=== PATIENT | female | born 2000 | race Caucasian/White ===

== ENCOUNTER 2019-02-14 20:42 | Emergency (ER) | payer BC ==
--- NOTE | 2019-02-14 20:51 | EDM.PDOC ---
ED HPI GENERAL MEDICAL PROBLEM - General Stated Complaint: HAD MIRENA PLACED. CRAMPING, BLEEDING, NAUSEOUS Time Seen by Provider: 02/14/19 20:45 Source of Information: Reports: Patient History Limitations: Reports: No Limitations - History of Present Illness INITIAL COMMENTS - FREE TEXT/NARRATIVE: HISTORY AND PHYSICAL: History of present illness: Patient is a 19-year-old female who presents to the emergency room with complaints of vaginal bleeding and suprapubic cramping since having a Mirena IUD placed approximately 8 days ago in [place]. She states initially she just had light spotting which is progressively gotten heavier and more painful. Patient denies any fever, chills, headache, change in vision, syncope or near syncope. Denies any chest pain, back pain, shortness of breath or cough. Denies any abdominal pain, nausea, vomiting, diarrhea, constipation or dysuria. Has not noted any blood in urine or stool. Patient has been eating and drinking appropriately. Review of systems: As per history of present illness and below otherwise all systems reviewed and negative. Past medical history: As per history of present illness and as reviewed below otherwise noncontributory. Surgical history: As per history of present illness and as reviewed below otherwise noncontributory. Social history: See social history for further information Family history: As per history of present illness and as reviewed below otherwise noncontributory. Physical exam: General: Well-developed and well-nourished 19-year-old female. Alert and oriented. Nontoxic appearing and in no acute distress. HEENT: Atraumatic, normocephalic, pupils equal and reactive bilaterally, negative for conjunctival pallor or scleral icterus, mucous membranes moist, trachea midline. No drooling or trismus noted. No meningeal signs. No hot potato voice noted. Lungs: Clear to auscultation, breath sounds equal bilaterally, chest nontender. Heart: S1S2, regular rate and rhythm without overt murmur Abdomen: Soft, nondistended, mild suprapubic tenderness. Negative for masses. Negative for costovertebral tenderness. Pelvis: Stable nontender. Genitourinary: This was done with consent and a slide attendant at the bedside. External genitalia is within normal limits. Cervical os is closed minimal amount of blood is noted in the vaginal canal. Able to visualize the Mirena strings. Mild tenderness with speculum insertion but no cervical motion tenderness. Rectal: Deferred. Skin: Intact, warm, dry. No lesions or rashes noted. Extremities: Atraumatic, moves all extremities per self without difficulty or deficits, negative for cords or calf pain. Neurovascular unremarkable. Neuro: Awake, alert, oriented. Cranial nerves II through XII unremarkable. Cerebellum unremarkable. Motor and sensory unremarkable throughout. Exam nonfocal. Notes: She states that prior to the IUD placement she did have STD testing and routine lab work along with . All of which were negative/normal. Lab work is unremarkable. Ultrasound shows IUD in the lower uterine segment. Simple cyst noted to the right ovary. This is an incidental finding and she does not have any right or left lower quadrant/pelvic pain that is more mons pubis/suprapubic. Supportive care measures were reviewed and discussed. Voices understanding and is agreeable to plan of care. Denies any further questions or concerns at this time. Diagnostics: CBC, CMP, UA, HCGU, Ultrasound Therapeutics: Tramadol Prescription: None Impression: Pelvic pain, post IUD insertion Plan: 1. Pelvic rest until pain resolves. 2. Tylenol and/or ibuprofen as needed for pain management. 3. Follow-up with your HOME IMPROVEMENT CONTRACTOR as we discussed. Return to the ED as needed as discussed. Definitive disposition and diagnosis as appropriate pending reevaluation and review of above. Duration: Day(s): Location: Reports: Pelvis Back Pain Score (Numeric/FACES): 8 - Related Data Allergies Allergy/AdvReac Type Severity Reaction Status Date / Time No Known Allergies Allergy Verified 02/14/19 20:59 Home Meds: Home Meds Levonorgestrel [Mirena] 1 each .XX ASDIRECTED 02/14/19 [History] ED ROS GENERAL - Review of Systems Review Of Systems: ROS reveals no pertinent complaints other than HPI. ED EXAM, GENERAL - Physical Exam Exam: See Below (See dictation) Course - Vital Signs Last Recorded V/S: Last Vital Signs Temp 97.5 F 02/14/19 20:52 Pulse 97 02/14/19 20:52 Resp 18 02/14/19 20:52 BP 121/83 02/14/19 20:52 Pulse Ox 98 02/14/19 20:52 - Orders/Labs/Meds Orders: Active Orders 24 hr Category Date Time Status Pelvis Non OB Ltd [US] Stat Exams 02/14/19 20:52 Taken Labs: Laboratory Tests 02/14/19 02/14/19 02/14/19 Range/Units 20:51 20:51 21:00 WBC 9.77 (4.0-11.0) K/uL RBC 4.76 (4.30-5.90) M/uL Hgb 14.2 (12.0-16.0) g/dL Hct 42.0 (36.0-46.0) % MCV 88.2 (80.0-98.0) fL MCH 29.8 (27.0-32.0) pg MCHC 33.8 (31.0-37.0) g/dL RDW Std Deviation 40.6 (28.0-62.0) fl RDW Coeff of Maryann 13 (11.0-15.0) % Plt Count 419 H (150-400) K/uL MPV 9.10 (7.40-12.00) fL Neut % (Auto) 52.5 (48.0-80.0) % Lymph % (Auto) 34.6 (16.0-40.0) % Kinney % (Auto) 9.2 (0.0-15.0) % Eos % (Auto) 3.1 (0.0-7.0) % Baso % (Auto) 0.6 (0.0-1.5) % Neut # (Auto) 5.1 (1.4-5.7) K/uL Lymph # (Auto) 3.4 H (0.6-2.4) K/uL Kinney # (Auto) 0.9 H (0.0-0.8) K/uL Eos # (Auto) 0.3 (0.0-0.7) K/uL Baso # (Auto) 0.1 (0.0-0.1) K/uL Nucleated RBC % 0.0 /100WBC Nucleated RBCs # 0 K/uL Sodium (136-145) mmol/L Potassium (3.5-5.1) mmol/L Chloride (98-107) mmol/L Carbon Dioxide (21.0-32.0) mmol/L BUN (7.0-18.0) mg/dL Creatinine (0.6-1.0) mg/dL Est Cr Clr Drug Dosing mL/min Estimated GFR (MDRD) ml/min Glucose (74-106) mg/dL Calcium (8.5-10.1) mg/dL Total Bilirubin (0.2-1.0) mg/dL AST (15-37) IU/L ALT (14-63) IU/L Alkaline Phosphatase (46-116) U/L Total Protein (6.4-8.2) g/dL Albumin (3.4-5.0) g/dL Globulin (2.6-4.0) g/dL Albumin/Globulin Ratio (0.9-1.6) Urine Color YELLOW Urine Appearance CLEAR Urine pH 7.5 (5.0-8.0) Ur Specific Clayton 1.015 (1.001-1.035) Urine Protein NEGATIVE (NEGATIVE) mg/dL Urine Glucose (UA) NEGATIVE (NEGATIVE) mg/dL Urine Ketones NEGATIVE (NEGATIVE) mg/dL Urine Occult Blood LARGE H (NEGATIVE) Urine Nitrite NEGATIVE (NEGATIVE) Urine Bilirubin NEGATIVE (NEGATIVE) Urine Urobilinogen 0.2 (<2.0) EU/dL Ur Leukocyte Esterase NEGATIVE (NEGATIVE) Urine RBC 0-4 (0-2/HPF) Urine WBC 0-2 (0-5/HPF) Ur Epithelial Cells OCCASIONAL (NONE-FEW) Urine Bacteria FEW (NEGATIVE) Urine HCG, Qual NEGATIVE (NEGATIVE) 02/14/19 Range/Units 21:00 WBC (4.0-11.0) K/uL RBC (4.30-5.90) M/uL Hgb (12.0-16.0) g/dL Hct (36.0-46.0) % MCV (80.0-98.0) fL MCH (27.0-32.0) pg MCHC (31.0-37.0) g/dL RDW Std Deviation (28.0-62.0) fl RDW Coeff of Maryann (11.0-15.0) % Plt Count (150-400) K/uL MPV (7.40-12.00) fL Neut % (Auto) (48.0-80.0) % Lymph % (Auto) (16.0-40.0) % Kinney % (Auto) (0.0-15.0) % Eos % (Auto) (0.0-7.0) % Baso % (Auto) (0.0-1.5) % Neut # (Auto) (1.4-5.7) K/uL Lymph # (Auto) (0.6-2.4) K/uL Kinney # (Auto) (0.0-0.8) K/uL Eos # (Auto) (0.0-0.7) K/uL Baso # (Auto) (0.0-0.1) K/uL Nucleated RBC % /100WBC Nucleated RBCs # K/uL Sodium 136 (136-145) mmol/L Potassium 4.0 (3.5-5.1) mmol/L Chloride 103 (98-107) mmol/L Carbon Dioxide 24.5 (21.0-32.0) mmol/L BUN 14 (7.0-18.0) mg/dL Creatinine 0.8 (0.6-1.0) mg/dL Est Cr Clr Drug Dosing 109.08 mL/min Estimated GFR (MDRD) > 60.0 ml/min Glucose 108 H (74-106) mg/dL Calcium 8.7 (8.5-10.1) mg/dL Total Bilirubin 0.2 (0.2-1.0) mg/dL AST 19 (15-37) IU/L ALT 26 (14-63) IU/L Alkaline Phosphatase 72 (46-116) U/L Total Protein 7.4 (6.4-8.2) g/dL Albumin 3.9 (3.4-5.0) g/dL Globulin 3.5 (2.6-4.0) g/dL Albumin/Globulin Ratio 1.1 (0.9-1.6) Urine Color Urine Appearance Urine pH (5.0-8.0) Ur Specific Clayton (1.001-1.035) Urine Protein (NEGATIVE) mg/dL Urine Glucose (UA) (NEGATIVE) mg/dL Urine Ketones (NEGATIVE) mg/dL Urine Occult Blood (NEGATIVE) Urine Nitrite (NEGATIVE) Urine Bilirubin (NEGATIVE) Urine Urobilinogen (<2.0) EU/dL Ur Leukocyte Esterase (NEGATIVE) Urine RBC (0-2/HPF) Urine WBC (0-5/HPF) Ur Epithelial Cells (NONE-FEW) Urine Bacteria (NEGATIVE) Urine HCG, Qual (NEGATIVE) Meds: Medications Discontinued Medications Generic Name Dose Route Start Last Admin Trade Name Freq PRN Reason Stop Dose Admin Tramadol HCl 50 mg 02/14/19 21:13 02/14/19 21:35 Ultram PO 02/14/19 21:14 50 mg ONETIME ONE Administration Departure - Departure Time of Disposition: 21:50 Disposition: Home, Self-Care 01 Clinical Impression: Pelvic pain - Discharge Information Instructions: Pelvic Pain, Female, [id number] Referrals: PCP,None [Primary Care Provider] - Additional Instructions: The following information is given to patients seen in the emergency department who are being discharged to home. This information is to outline your options for follow-up care. We provide all patients seen in our emergency department with a follow-up referral. The need for follow-up, as well as the timing and circumstances, are variable depending upon the specifics of your emergency department visit. If you don't have a primary care physician on staff, we will provide you with a referral. We always advise you to contact your personal physician following an emergency department visit to inform them of the circumstance of the visit and for follow-up with them and/or the need for any referrals to a consulting specialist. The emergency department will also refer you to a specialist when appropriate. This referral assures that you have the opportunity for follow-up care with a specialist. All of these measure are taken in an effort to provide you with optimal care, which includes your follow-up. Under all circumstances we always encourage you to contact your private physician who remains a resource for coordinating your care. When calling for follow-up care, please make the office aware that this follow-up is from your recent emergency room visit. If for any reason you are refused follow-up, please contact the [facility] Emergency Department at and asked to speak to the emergency department charge nurse. [facility] Primary Care: Women's Health [address] [place] [id number] [facility] [address] [place] [address] 1. Pelvic rest until pain resolves. 2. Tylenol and/or ibuprofen as needed for pain management. 3. Follow-up with your HOME IMPROVEMENT CONTRACTOR as we discussed. Return to the ED as needed as discussed. - My Orders Last 24 Hours: My Active Orders 02/14/19 20:52 Pelvis Non OB Ltd [US] Stat - Assessment/Plan Last 24 Hours: My Active Orders 02/14/19 20:52 Pelvis Non OB Ltd [US] Stat
[2019-02-14] MEDS ORDERED: traMADol 50 MG Tab PO ONE (21:13)
[2019-02-14 21:33] LABS: CHLORIDE,CL 103 mmol/L (98-107); SODIUM,NA 136 mmol/L (136-145)
--- NOTE | 2019-02-14 21:55 | US ---
INDICATION: IUD inserted on 02/06/2019. Now with pelvic cramping TECHNIQUE: Ultrasound pelvis transabdominal and transvaginal. Endovaginal imaging was performed to better visualize the endometrium and ovaries. Real-time cortez scale sonographic images with spectral and color Doppler imaging of the ovaries were obtained. COMPARISON: None FINDINGS: Uterus: 4.2 x 5 x 6.7 cm. An IUD is present in the lower uterine segment. Normal echotexture of the myometrium noted with no masses are seen. Endometrium: 9 mm. No sign of endometrial mass or fluid present. Right ovary: 3.2 x 3.2 x 2.5 cm. There is a simple cyst in the right ovary measuring 2.7 x 1.6 cm. Arterial blood flow seen within the right ovary but diastolic flow is difficult to demonstrate. Left ovary: 2.3 x 2.8 x 2.3 cm. The left ovary is normal in appearance and echotexture. Arterial blood flow seen within the left ovary. Cul-de-sac: No significant ascites noted. IMPRESSIONS: 1. An IUD is present in the lower uterine segment. 2. There is a simple cyst in the right ovary measuring 2.7 x 1.6 cm. 3. Arterial blood flow seen within the right ovary but diastolic flow is difficult to demonstrate. Partial ovarian torsion cannot be excluded. Dictated by Eric Fuller MD @ 02/14/2019 9:52:24 PM Dictated by: Eric Fuller MD @ 02/14/2019 21:54:45 (Electronically Signed)
== END 2019-02-14 22:05 | disposition home or self-care (01) ==
LOC: MW.ED 20:42
DX: T83.84XA Pain due to genitourinary prosthetic devices, implants and grafts, initial encounter (principal)
CPT/HCPCS: 36415; 76857; 80053; 81001; 81025; 85025; 99284; A9270

== ENCOUNTER 2020-10-16 20:53 | Emergency (ER) | payer MEDICAID ==
[2020-10-16] MEDS ORDERED: cefTRIAXone 1 GM Vial IM ONE (21:55)
--- NOTE | 2020-10-16 21:56 | EDM.PDOC ---
ED HPI GENERAL MEDICAL PROBLEM - General Chief Complaint: LEASE BROKER Problem Stated Complaint: CERVICAL PAIN Time Seen by Provider: 10/16/20 21:30 Source of Information: Reports: Patient History Limitations: Reports: No Limitations - History of Present Illness INITIAL COMMENTS - FREE TEXT/NARRATIVE: HISTORY AND PHYSICAL: History of present illness: Patient is a 20-year-old female who presents to the ED today with concern of sensation of " period Cramping "but states that she is not having any vaginal bleeding as she has had an IUD for 2 years. She states her symptoms started at 4 this afternoon and states that she feels like she is going to start her menstrual cycle but she has not had any vaginal bleeding. Patient states that she has an IUD so was concerned that maybe she is having some complication with an IUD. Patient states that she has still been able to feel her strings. Patient states that if she were to have intercourse, this would also be painful. She states that she has been in a monogamous relationship for 2 years but there is the possibility that her significant other is not faithful as she has doubted him before. Patient denies any change in vaginal discharge. Patient denies fever, chills, chest pain, shortness of breath, or cough. Denies headache, neck stiff ness, change in vision, syncope, or near syncope. Denies nausea, vomiting, diarrhea, constipation, or dysuria. Has not noted any blood in urine or stool. Patient has been eating and drinking appropriately. Review of systems: As per history of present illness and below otherwise all systems reviewed and negative. Past medical history: As per history of present illness and as reviewed below otherwise noncontributory. Surgical history: As per history of present illness and as reviewed below otherwise noncontributory. Social history: See social history for further information Family history: As per history of present illness and as reviewed below otherwise noncontributo ry. Physical exam: General: Patient is alert, oriented, and in no acute distress. Patient sitting comfortably on exam table. Vitals stable and reviewed by me. HEENT: Atraumatic, normocephalic, pupils equal and reactive bilaterally, negative for conjunctival pallor or scleral icterus, mucous membranes moist, TMs normal bilaterally, throat clear, neck supple, nontender, trachea midline. No drooling or trismus noted. No meningeal signs. No hot potato voice noted. Lungs: Clear to auscultation, breath sounds equal bilaterally, chest nontender. Heart: S1S2, regular rate and rhythm without overt murmur Abdomen: Soft, nondistended, nontender. Negative for masses or hepatosplenomegaly. Negative for costovertebral tenderness. Pelvis: Stable nontender. Genitourinary: Donation Worker at bedside Delia. External genitalia is grossly unremarkable. There is a moderate amount of white vaginal discharge in the vaginal vault. Positive cervical motion tenderness chandelier sign. Uterus nontender. No adnexal tenderness. Rectal: Deferred. Skin: Intact, warm, dry. No lesions or rashes noted. Extremities: Atraumatic, negative for cords or calf pain. Neurovascular unremarkable. Neuro: Awake, alert, oriented. Cranial nerves II through XII unremarkable. Cerebellum unremarkable. Motor and sensory unremarkable throughout. Exam nonfocal. Notes: Signs and symptoms that would prompt return to the ED thoroughly discussed with patient. Discussed importance for follow-up with women's health provider. Voices understanding and is agreeable to plan of care. Denies any further questions or concerns at this time. Diagnostics: CBC, CMP, UA, Hcg, TVUS, Affirm, [employer]: Rocephin Prescription: Doxycycline Impression: Pelvic inflammatory disease Plan: 1. You can alternate ibuprofen and Tylenol as directed for pain and discomfort. 2. Take medication as prescribed. Refrain from sexual activity until all lab work has returned. 3. Follow-up with a women's health provider as discussed. Return to the ED as needed and as discussed. Definitive disposition and diagnosis as appropriate pending reevaluation and review of above. Uterine Pain Score (Numeric/FACES): 8 - Related Data Allergies Allergy/AdvReac Type Severity Reaction Status Date / Time No Known Allergies Allergy Verified 10/16/20 21:24 Home Meds: Home Meds levonorgestreL [Mirena] 1 each .XX ASDIRECTED 02/14/19 [History] Doxycycline [Vibramycin] 100 mg PO BID 14 Days #28 cap 10/16/20 [Rx] Past Medical History Cardiovascular History: Reports: None Respiratory History: Reports: None Gastrointestinal History: Reports: None LEASE BROKER History: Reports: Spontaneous , Other (See Below) Other LEASE BROKER History: IUD Musculoskeletal History: Reports: None Neurological History: Reports: None Psychiatric History: Reports: Anxiety, Depression, Mood Swings Endocrine/Metabolic History: Reports: None Hematologic History: Reports: None Immunologic History: Reports: None Oncologic (Cancer) History: Reports: None Dermatologic History: Reports: None - Infectious Disease History Infectious Disease History: Reports: None - Past Surgical History Head Surgeries/Procedures: Reports: None HEENT Surgical History: Reports: Oral Surgery, Tonsillectomy Social & Family History - Family History Family Medical History: No Pertinent Family History - Recreational Drug Use Recreational Drug Use: No ED ROS GENERAL - Review of Systems Review Of Systems: Comprehensive ROS is negative, except as noted in HPI. ED EXAM, GENERAL - Physical Exam Exam: See Below (see dictation) Course - Vital Signs Last Recorded V/S: Last Vital Signs Temp 97.0 F 10/16/20 23:50 Pulse 81 10/16/20 23:50 Resp 18 10/16/20 23:50 BP 123/87 10/16/20 23:50 Pulse Ox 99 10/16/20 23:50 - Orders/Labs/Meds Labs: Laboratory Tests 10/16/20 10/16/20 10/16/20 Range/Units 21:15 21:40 21:57 WBC 8.36 (4.0-11.0) K/uL RBC 4.83 (4.30-5.90) M/uL Hgb 14.8 (12.0-16.0) g/dL Hct 43.3 (36.0-46.0) % MCV 89.6 (80.0-98.0) fL MCH 30.6 (27.0-32.0) pg MCHC 34.2 (31.0-37.0) g/dL RDW Std Deviation 40.0 (28.0-62.0) fl RDW Coeff of Maryann 12 (11.0-15.0) % Plt Count 422 H (150-400) K/uL MPV 8.90 (7.40-12.00) fL Neut % (Auto) 46.9 L (48.0-80.0) % Lymph % (Auto) 38.9 (16.0-40.0) % Grundy % (Auto) 10.4 (0.0-15.0) % Eos % (Auto) 2.8 (0.0-7.0) % Baso % (Auto) 1.0 (0.0-1.5) % Neut # (Auto) 3.9 (1.4-5.7) K/uL Lymph # (Auto) 3.3 H (0.6-2.4) K/uL Grundy # (Auto) 0.9 H (0.0-0.8) K/uL Eos # (Auto) 0.2 (0.0-0.7) K/uL Baso # (Auto) 0.1 (0.0-0.1) K/uL Nucleated RBC % 0.0 /100WBC Nucleated RBCs # 0 K/uL Sodium (136-145) mmol/L Potassium (3.5-5.1) mmol/L Chloride (98-107) mmol/L Carbon Dioxide (21.0-32.0) mmol/L BUN (7.0-18.0) mg/dL Creatinine (0.6-1.0) mg/dL Est Cr Clr Drug Dosing mL/min Estimated GFR (MDRD) ml/min Glucose (74-106) mg/dL Calcium (8.5-10.1) mg/dL Total Bilirubin (0.2-1.0) mg/dL AST (15-37) IU/L ALT (14-63) IU/L Alkaline Phosphatase (46-116) U/L Total Protein (6.4-8.2) g/dL Albumin (3.4-5.0) g/dL Globulin (2.6-4.0) g/dL Albumin/Globulin Ratio (0.9-1.6) HCG, Qual (NEG) Urine Color YELLOW Urine Appearance CLEAR Urine pH 6.5 (5.0-8.0) Ur Specific [place] 1.025 (1.001-1.035) Urine Protein NEGATIVE (NEGATIVE) mg/dL Urine Glucose (UA) NEGATIVE (NEGATIVE) mg/dL Urine Ketones NEGATIVE (NEGATIVE) mg/dL Urine Occult Blood NEGATIVE (NEGATIVE) Urine Nitrite NEGATIVE (NEGATIVE) Urine Bilirubin NEGATIVE (NEGATIVE) Urine Urobilinogen 0.2 (<2.0) EU/dL Ur Leukocyte Esterase NEGATIVE (NEGATIVE) Nata species DNA NEGATIVE (NEGATIVE) Gardnerella DNA Probe NEGATIVE (NEGATIVE) Trichomonas DNA Probe NEGATIVE (NEGATIVE) 10/16/20 10/16/20 Range/Units 21:57 21:57 WBC (4.0-11.0) K/uL RBC (4.30-5.90) M/uL Hgb (12.0-16.0) g/dL Hct (36.0-46.0) % MCV (80.0-98.0) fL MCH (27.0-32.0) pg MCHC (31.0-37.0) g/dL RDW Std Deviation (28.0-62.0) fl RDW Coeff of Maryann (11.0-15.0) % Plt Count (150-400) K/uL MPV (7.40-12.00) fL Neut % (Auto) (48.0-80.0) % Lymph % (Auto) (16.0-40.0) % Grundy % (Auto) (0.0-15.0) % Eos % (Auto) (0.0-7.0) % Baso % (Auto) (0.0-1.5) % Neut # (Auto) (1.4-5.7) K/uL Lymph # (Auto) (0.6-2.4) K/uL Grundy # (Auto) (0.0-0.8) K/uL Eos # (Auto) (0.0-0.7) K/uL Baso # (Auto) (0.0-0.1) K/uL Nucleated RBC % /100WBC Nucleated RBCs # K/uL Sodium 139 (136-145) mmol/L Potassium 4.1 (3.5-5.1) mmol/L Chloride 103 (98-107) mmol/L Carbon Dioxide 23.7 (21.0-32.0) mmol/L BUN 15 (7.0-18.0) mg/dL Creatinine 0.9 (0.6-1.0) mg/dL Est Cr Clr Drug Dosing 99.74 mL/min Estimated GFR (MDRD) > 60.0 ml/min Glucose 97 (74-106) mg/dL Calcium 9.0 (8.5-10.1) mg/dL Total Bilirubin 0.3 (0.2-1.0) mg/dL AST 13 L (15-37) IU/L ALT 24 (14-63) IU/L Alkaline Phosphatase 66 (46-116) U/L Total Protein 7.7 (6.4-8.2) g/dL Albumin 4.0 (3.4-5.0) g/dL Globulin 3.7 (2.6-4.0) g/dL Albumin/Globulin Ratio 1.1 (0.9-1.6) HCG, Qual NEGATIVE (NEG) Urine Color Urine Appearance Urine pH (5.0-8.0) Ur Specific [place] (1.001-1.035) Urine Protein (NEGATIVE) mg/dL Urine Glucose (UA) (NEGATIVE) mg/dL Urine Ketones (NEGATIVE) mg/dL Urine Occult Blood (NEGATIVE) Urine Nitrite (NEGATIVE) Urine Bilirubin (NEGATIVE) Urine Urobilinogen (<2.0) EU/dL Ur Leukocyte Esterase (NEGATIVE) Nata species DNA (NEGATIVE) Gardnerella DNA Probe (NEGATIVE) Trichomonas DNA Probe (NEGATIVE) Meds: Medications Discontinued Medications Generic Name Dose Route Start Last Admin Trade Name Freq PRN Reason Stop Dose Admin Ceftriaxone Sodium 1 gm 10/16/20 21:55 10/16/20 22:04 Rocephin IM 10/16/20 21:56 Not Given ONETIME ONE Ceftriaxone Sodium 1 gm/ 4 mls @ 4 mls/sec 10/16/20 22:03 10/16/20 22:52 Lidocaine HCl IM 10/16/20 22:04 4 mls/sec ONETIME ONE Administration Ketorolac Tromethamine 60 mg 10/16/20 22:45 10/16/20 22:50 Toradol IM 10/16/20 22:46 60 mg ONETIME ONE Administration Ketorolac Tromethamine Confirm 10/16/20 22:46 10/16/20 22:52 Toradol Administered 10/16/20 22:47 Not Given Dose 60 mg .ROUTE .STK-MED ONE Departure - Departure Time of Disposition: 23:44 Disposition: Home, Self-Care 01 Clinical Impression: Pelvic inflammatory disease (PID) - Discharge Information Prescriptions: Doxycycline [Vibramycin] 100 mg PO BID 14 Days #28 cap Instructions: Pelvic Inflammatory Disease, [id number] Referrals: Celine Dueñas NP [Primary Care Provider] - Forms: ED Department Discharge Additional Instructions: The following information is given to patients seen in the emergency department who are being discharged to home. This information is to outline your options for follow-up care. We provide all patients seen in our emergency department with a follow-up referral. The need for follow-up, as well as the timing and circumstances, are variable depending upon the specifics of your emergency department visit. If you don't have a primary care physician on staff, we will provide you with a referral. We always advise you to contact your personal physician following an emergency department visit to inform them of the circumstance of the visit and for follow-up with them and/or the need for any referrals to a consulting specialist. The emergency department will also refer you to a specialist when appropriate. This referral assures that you have the opportunity for follow-up care with a specialist. All of these measure are taken in an effort to provide you with optimal care, which includes your follow-up. Under all circumstances we always encourage you to contact your private physician who remains a resource for coordinating your care. When calling for follow-up care, please make the office aware that this follow-up is from your recent emergency room visit. If for any reason you are refused follow-up, please contact the [facility] Emergency Department at and asked to speak to the emergency department charge nurse. [facility] [address] [place] [address] [facility] [address] [place] [address] [facility] [address], [place] [address] 1. You can alternate ibuprofen and Tylenol as directed for pain and discomfort. 2. Take medication as prescribed. Refrain from sexual activity until all lab work has returned. 3. Follow-up with a women's health provider as discussed. Return to the ED as needed and as discussed. Sepsis Event Note (ED) - Evaluation Sepsis Screening Result: No Definite Risk
[2020-10-16] MEDS ORDERED: cefTRIAXone 1 GM in Lidocaine 1% 4 ML IM ONE (22:03)
[2020-10-16 22:34] LABS: BLOOD UREA NITROGEN,BUN 15 mg/dL (7.0-18.0); CARBON DIOXIDE,CO2 23.7 mmol/L (21.0-32.0); CHLORIDE,CL 103 mmol/L (98-107); GLUCOSE RANDOM 97 mg/dL (74-106); POTASSIUM,K 4.1 mmol/L (3.5-5.1); SODIUM,NA 139 mmol/L (136-145)
[2020-10-16] MEDS ORDERED: Ketorolac 60 MG/2 ML SDV IM ONE (22:45)
[2020-10-16] MEDS ORDERED: Ketorolac 60 MG/2 ML SDV ONE (22:46)
--- NOTE | 2020-10-16 23:27 | US ---
INDICATION: IUD, cramping COMPARISON: Ultrasound pelvis 09/01/2020 TECHNIQUE: Multiple grayscale sonographic images of the pelvis. Scanning was performed transvaginally. FINDINGS: The uterus measures 7.2 x 4.3 x 3.7 cm. There is normal myometrial echotexture. There is normal thickness of the endometrial lining, measuring up to 0.9 cm. Intrauterine device appears appropriately positioned within the endometrial cavity. The right ovary measures 2.9 x 1.9 x 3.1 cm. The left ovary measures 2.2 x 2.5 x 2.9 cm. Normal follicular changes are seen in both ovaries. Intact vascular flow is demonstrated to both ovaries with spectral Doppler. A small to moderate amount of free fluid is noted in the pelvis. IMPRESSION: IUD in appropriate position. Otherwise normal uterus. Normal ovaries. Nonspecific pelvic free fluid. Dictated by Devon Weems MD @ Oct 16 2020 11:25PM Signed by Dr. Devon Weems @ Oct 16 2020 11:25PM
[2020-10-18 14:07] LABS: C.TRACHOMATIS BY TMA Negative (Negative); N.GONORRHOEAE BY TMA Negative (Negative)
== END 2020-10-16 23:50 | disposition home or self-care (01) ==
LOC: MW.ED 20:53
DX: N73.9 Female pelvic inflammatory disease, unspecified (principal)
CPT/HCPCS: 36415; 76830; 80053; 81003; 84703; 85025; 87480; 87491; 87510; 87591; 87660; 96372; 99284; J0696; J1885; 99283

== ENCOUNTER 2021-10-21 17:00 | Emergency (ER) | payer MEDICAID ==
[2021-10-21] MEDS ORDERED: Ketorolac 30 MG/ML SDV IVPUSH ONE (17:19)
[2021-10-21] MEDS ORDERED: Sodium Chloride 0.9% 1,000 ML IV ONE (17:19)
[2021-10-21] MEDS ORDERED: Ondansetron 4 MG/2 ML SDV IVPUSH ONE (17:19)
[2021-10-21] MEDS ORDERED: LORazepam 2 MG/ML SDV IVPUSH ONE (17:19)
== END 2021-10-21 18:58 | disposition home or self-care (01) ==
LOC: MW.ED 17:00
DX: G43.909 Migraine, unspecified, not intractable, without status migrainosus (principal)
CPT/HCPCS: 96374; 96375; 99283; J1885; J2060; J2405; J7030; 99282

== ENCOUNTER 2021-10-27 12:23 | Emergency (ER) | payer MEDICAID ==
[2021-10-27] MEDS ORDERED: Sodium Chloride 0.9% 2.5 ML Syringe FLUSH PRN (12:36)
[2021-10-27] MEDS ORDERED: Sodium Chloride 0.9% 10 ML Syringe FLUSH PRN (12:36)
[2021-10-27 13:46] LABS: BLOOD UREA NITROGEN,BUN 7 mg/dL (7.0-18.0); CARBON DIOXIDE,CO2 24.5 mmol/L (21.0-32.0); CHLORIDE,CL 106 mmol/L (98-107); GLUCOSE RANDOM 101 mg/dL (74-106); LIPASE 60 U/L (73-393); SODIUM,NA 138 mmol/L (136-145)
== END 2021-10-27 14:31 | disposition home or self-care (01) ==
LOC: MW.ED 12:23
DX: R10.2 Pelvic and perineal pain (principal)
CPT/HCPCS: 36415; 76830; 76830-26; 80053; 81001; 83690; 84703; 85025; 99284-25

== ENCOUNTER 2022-03-08 20:16 | Emergency (ER) | payer MEDICAID | END 2022-03-08 21:36 | LOC: MW.ED 20:16 | DX: Z53.21 Procedure and treatment not carried out due to patient leaving prior to being seen by health care provider (principal) ==

== ENCOUNTER 2022-03-09 06:30 | Emergency (ER) | payer MEDICAID ==
[2022-03-09] MEDS ORDERED: Sodium Chloride 0.9% 2.5 ML Syringe FLUSH PRN (06:54)
[2022-03-09] MEDS ORDERED: Sodium Chloride 0.9% 10 ML Syringe FLUSH PRN (06:54)
[2022-03-09] MEDS ORDERED: Sodium Chloride 0.9% 1,000 ML IV ONE (06:54)
[2022-03-09 07:41] LABS: CARBON DIOXIDE,CO2 22.3 mmol/L (21.0-32.0); POTASSIUM,K 3.8 mmol/L (3.5-5.1)
[2022-03-09 10:17] LABS: C. TRACHOMATIS BY PCR NOT DETECTED; N. GONORRHOEAE BY PCR NOT DETECTED
== END 2022-03-09 10:35 | disposition home or self-care (01) ==
LOC: MW.ED 06:30
DX: O46.8X2 Other antepartum hemorrhage, second trimester (principal); Z3A.18 18 weeks gestation of pregnancy; Z79.899 Other long term (current) drug therapy
CPT/HCPCS: 36415; 76815; 80053; 85025; 86900; 86901; 87480; 87491; 87510; 87591; 87660; 99284; J3490; J7030

== ENCOUNTER 2022-07-29 19:46 | Inpatient (IN) | payer MEDICAID ==
[2022-07-29] MEDS ORDERED: Sodium Chloride 0.9% 2.5 ML Syringe FLUSH PRN (20:42)
[2022-07-29] MEDS ORDERED: Water For Irrigation,Sterile 1,000 ML Container IRR PRN (20:42)
[2022-07-29] MEDS ORDERED: Methylergonovine 0.2 MG/1 ML Amp IM PRN (20:42)
[2022-07-29] MEDS ORDERED: Carboprost Tromethamine 250 MCG/1 ML Amp IM PRN (20:42)
[2022-07-29] MEDS ORDERED: Lidocaine 1% 50 ML MDV INJECT PRN (20:42)
[2022-07-29] MEDS ORDERED: Sodium Chloride 0.9% 10 ML Syringe FLUSH PRN (20:42)
[2022-07-29] MEDS ORDERED: Terbutaline 1 MG/ML SDV SUBCUT PRN (20:42)
[2022-07-29] MEDS ORDERED: Tranexamic Acid 1,000 MG in Sodium Chloride 0.9% 100 ML IV PRN (20:42)
[2022-07-29] MEDS ORDERED: Sodium Chloride 0.9% 20 ML SDV IV PRN (20:42)
[2022-07-29] MEDS ORDERED: Butorphanol 1 MG/ML SDV IVPUSH PRN (20:42)
[2022-07-29] MEDS ORDERED: Misoprostol 200 MCG Tab PO PRN (20:42)
[2022-07-29] MEDS ORDERED: Oxytocin/0.9 % Sodium Chloride 30 UNIT/500 ML BAG IV SCH ×2 (20:45)
[2022-07-29] MEDS ORDERED: Misoprostol 25 MCG (1/4 of 100 MCG) Tab VAG PRN (21:00)
[2022-07-29] MEDS ORDERED: Ampicillin 2 GM in Sodium Chloride 0.9% 100 ML IV ONE (21:00)
[2022-07-29] MEDS: Lactated Ringers 1,000 ML IV SCH (21:15)
[2022-07-30] MEDS ORDERED: Misoprostol 25 MCG (1/4 of 100 MCG) Tab VAG PRN (01:00)
[2022-07-30] MEDS: Ampicillin 1 GM in Sodium Chloride 0.9% 50 ML IV SCH ×6 (01:58→22:56)
[2022-07-30] MEDS: Lactated Ringers 1,000 ML IV SCH (03:46)
[2022-07-30 07:12] LABS: CARBON DIOXIDE,CO2 20.8 mmol/L (21.0-32.0); POTASSIUM,K 4.4 mmol/L (3.5-5.1)
[2022-07-30] MEDS: buPROPion 150 MG Tab.ER PO SCH (08:27)
[2022-07-30] MEDS ORDERED: Ropivacaine/PF 400 MG/200 ML PCA ONE (14:09)
[2022-07-30] MEDS ORDERED: ePHEDrine 50 MG/ML SDV IVPUSH PRN (14:22)
[2022-07-30] MEDS ORDERED: Phenylephrine HCl In 0.9% NaCl 1 MG/10 ML Vial IVPUSH PRN (14:22)
[2022-07-30] MEDS ORDERED: Ropivacaine HCl/PF 400 MG in Premix Bag 1 BAG EPIDUR SCH (14:30)
[2022-07-30] MEDS ORDERED: ePHEDrine 50 MG/ML SDV ONE (15:42)
[2022-07-30] MEDS: Ondansetron 4 MG/2 ML SDV IVPUSH PRN (20:26)
[2022-07-31] MEDS ORDERED: Lanolin 100% Cream 7 GM Tube TOP PRN (00:58)
[2022-07-31] MEDS ORDERED: Hydrocortisone 2.5% Crm 30 GM Tube TOP PRN (00:58)
[2022-07-31] MEDS ORDERED: Benzocaine/Menthol 20%-0.5% Spray 78 GM Cannister TOP PRN (00:58)
[2022-07-31] MEDS ORDERED: oxyCODONE 5 MG Tab PO PRN (00:58)
[2022-07-31] MEDS ORDERED: Acetaminophen 500 MG Tab PO PRN (00:58)
[2022-07-31] MEDS ORDERED: Ibuprofen 400 MG Tab PO PRN (00:58)
[2022-07-31] MEDS ORDERED: Witch Hazel Medicated Pads 40/Jar TOP PRN (00:58)
[2022-07-31] MEDS: Acetaminophen 500 MG Tab PO PRN ×3 (02:31→21:19)
[2022-07-31] MEDS: Ibuprofen 800 MG Tab PO PRN ×4 (02:32→21:19)
[2022-07-31] MEDS: Ondansetron 4 MG/2 ML SDV IVPUSH PRN (03:09)
[2022-07-31] MEDS: buPROPion 150 MG Tab.ER PO SCH (08:12)
[2022-07-31] MEDS: Docusate Sodium 100 MG Cap PO SCH ×2 (20:10→21:20)
[2022-08-01] MEDS: Ibuprofen 800 MG Tab PO PRN (04:52)
[2022-08-01] MEDS: Acetaminophen 500 MG Tab PO PRN (04:53)
== END 2022-08-01 11:30 | disposition home or self-care (01) | DRG 768 ==
LOC: MW.OB 19:46 → MW.OBCHECK 19:46 → MW.OB 20:43 → OBSVTOIN 07-31 00:04 → MW.OB 07-31 05:00
PROVIDERS: ADMIT Obstetrics & Gynecology; ATTEND Obstetrics & Gynecology
PROC: 10D07Z6 Extraction of Products of Conception, Vacuum, Via Natural or Artificial Opening (ICD-10-PCS; principal; 2022-07-31)
PROC: 0DQP0ZZ Repair Rectum, Open Approach (ICD-10-PCS; 2022-07-31)
PROC: 10H07YZ Insertion of Other Device into Products of Conception, Via Natural or Artificial Opening (ICD-10-PCS; 2022-07-31)
PROC: 10907ZC Drainage of Amniotic Fluid, Therapeutic from Products of Conception, Via Natural or Artificial Opening (ICD-10-PCS; 2022-07-31)
PROC: 00HU33Z Insertion of Infusion Device into Spinal Canal, Percutaneous Approach (ICD-10-PCS; 2022-07-31)
PROC: 3E0R3BZ Introduction of Anesthetic Agent into Spinal Canal, Percutaneous Approach (ICD-10-PCS; 2022-07-31)
DX: O13.4 Gestational [pregnancy-induced] hypertension without significant proteinuria, complicating childbirth (principal); Z37.0 Single live birth; O99.824 Streptococcus B carrier state complicating childbirth; Z3A.39 39 weeks gestation of pregnancy; O70.3 Fourth degree perineal laceration during delivery; O99.344 Other mental disorders complicating childbirth; Z86.16 Personal history of COVID-19; Z90.89 Acquired absence of other organs; Z98.890 Other specified postprocedural states
CPT/HCPCS: 01967; 36415; 51702; 59025; 59409; 80053; 82570; 82803; 84156; 85014; 85018; 85027; 86592; 86850; 86900; 86901; A9270-GY; J0290; J0595; J2405; J2590; J2795; J7120; U0002

== ENCOUNTER 2023-06-21 06:36 | Day surgery (SDC) | payer MEDICAID ==
[~2023-06-21 06:36] MED LIST: Lactated Ringers 1,000 ML IV SCH; Sodium Chloride 0.9% 10 ML Syringe FLUSH PRN; Sodium Chloride 0.9% 2.5 ML Syringe FLUSH PRN; Sodium Chloride 0.9% 20 ML SDV IV PRN
[2023-06-21] MEDS ORDERED: Lidocaine 1% 20 ML MDV ONE (07:23)
[2023-06-21] MEDS ORDERED: Bupivacaine 0.5% 30 ML SDV ONE (07:23)
[2023-06-21] MEDS ORDERED: propofoL 50 ML ONE (07:28)
[2023-06-21] MEDS ORDERED: Dexmedetomidine 200 MCG/2 ML SDV ONE (07:29)
[2023-06-21] MEDS ORDERED: Water For Injection, Sterile 20 ML ONE (07:29)
[2023-06-21] MEDS ORDERED: Propofol 200 MG/20 ML SDV ONE (08:15)
[2023-06-21] MEDS ORDERED: Ondansetron 4 MG/2 ML SDV IVPUSH PRN (08:20)
[2023-06-21] MEDS ORDERED: Albuterol 0.083% 2.5 MG/3 ML Neb Soln NEB PRN (08:20)
[2023-06-21] MEDS ORDERED: Naloxone 0.4 MG/ML SDV IVPUSH PRN (08:20)
[2023-06-21] MEDS ORDERED: Morphine 2 MG/ML SYRINGE IVPUSH PRN (08:20)
[2023-06-21] MEDS ORDERED: fentaNYL 50 MCG/ML SDV IVPUSH ONE (08:20)
[2023-06-21] MEDS ORDERED: HYDROmorphone 1 MG/ML Syringe IVPUSH PRN (08:20)
[2023-06-21] MEDS ORDERED: Metoclopramide 10 MG/2 ML SDV IVPUSH PRN (08:20)
[2023-06-21] MEDS ORDERED: Acetaminophen/HYDROcodone 325-5 MG Tab PO PRN (08:38)
[2023-06-21] MEDS ORDERED: Lactated Ringers 1,000 ML IV SCH (08:45)
[2023-06-21] MEDS ORDERED: Ketorolac 30 MG/ML SDV ONE (08:46)
== END 2023-06-21 09:45 | disposition home or self-care (01) ==
LOC: MW.SDS 06:36
PROVIDERS: ATTEND Surgery
DX: L72.0 Epidermal cyst (principal); D22.5 Melanocytic nevi of trunk; L73.8 Other specified follicular disorders; F41.9 Anxiety disorder, unspecified; J45.909 Unspecified asthma, uncomplicated; F32.A Depression, unspecified; E66.9 Obesity, unspecified; F17.210 Nicotine dependence, cigarettes, uncomplicated; Z91.018 Allergy to other foods; Z79.899 Other long term (current) drug therapy; Z79.84 Long term (current) use of oral hypoglycemic drugs; Z68.41 Body mass index [BMI] 40.0-44.9, adult
CPT/HCPCS: 11401; 81025; J1885; J2704; J3010; J3490; J7120